=== PATIENT | female | born 1985 | race African-American/Black ===

== ENCOUNTER 2017-12-06 09:32 | Emergency (ER) | payer BC, MEDICAID ==
[2017-12-06 11:34] LABS: URINE BLOOD (Dip) POC Negative (NEGATIVE); URINE GLUCOSE (Dip) POC Negative (NEGATIVE); URINE KETONES (Dip) POC Negative (NEGATIVE); URINE LEUKOCYTE EST (Dip) POC Negative (NEGATIVE); URINE NITRITE (Dip) POC Negative (NEGATIVE); URINE TOTAL PROTEIN POC Negative (NEGATIVE)
[2017-12-06 11:34] LABS: URINE PH (Dip) POC 5.5 (5.0-8.5)
[2017-12-06] MEDS: IBUPROFEN 600 MG TAB PO (13:57)
== END 2017-12-06 14:00 | disposition home or self-care (01) ==
LOC: FTE 09:32
DX: R10.9 Unspecified abdominal pain (principal)
CPT/HCPCS: 76856; 81003; 81025; 99284-25